=== PATIENT | female | born 1970 | race Caucasian/White ===

== ENCOUNTER 2020-01-24 17:38 | Inpatient (IN) | payer MEDICARE ==
[~2020-01-24] VITALS: Ht 165.1 cm; Wt 55.8 kg
--- NOTE | 2020-01-24 18:35 | NUR ---
Patient presents to ER for pysch admission. Per YANIRA Bello pt is "on a hold for gravely disabled." Patient placed in RM 1B. States she came from [facility] in [place]. Patient is alert and orient, ambulatory. Pt noted to have IV in Lt AC from the hospital she came from. IV removed, noted with tip intact. Patient states she has had nausea and diarrhea. Pt in no acute distress. Seen and examined by Dr. Kemp.
[2020-01-24] MEDS ORDERED: FLEXERIL PO (18:39)
[2020-01-24] MEDS ORDERED: SUMA50TA PO (18:39)
[2020-01-24] MEDS ORDERED: TOPI50TA PO (18:39)
[2020-01-24] MEDS ORDERED: ALBU0.63 NEB (18:39)
[2020-01-24] MEDS ORDERED: ATOR10TA PO (18:52)
[2020-01-24] MEDS ORDERED: LEVO25TA9 PO (18:52)
[2020-01-24] MEDS ORDERED: LOSA50TA39 PO (18:52)
[2020-01-24] MEDS ORDERED: TRAZ-182 PO (18:52)
[2020-01-24] MEDS ORDERED: BUPR100T5 PO (18:52)
--- NOTE | 2020-01-24 19:01 | NUR ---
Report given to Adenike CANNON.
--- NOTE | 2020-01-24 19:25 | NUR ---
EKG taken at this time
[2020-01-24 19:46] LABS: BASOPHILS # (AUTO) 0.1 K/uL (0.0-8.0); BASOPHILS % (AUTO) 1.4 % (0.0-2.0); CREATININE 0.9 mg/dL (0.6-1.3); EOSINOPHILS # (AUTO) 0.1 K/uL (0.0-0.7); EOSINOPHILS % (AUTO) 1.8 % (0.0-7.0); HEMATOCRIT 39.7 % (31.2-41.9); HEMOGLOBIN 13.2 g/dL (10.9-14.3); LYMPHOCYTES % (AUTO) 45.1 % (20.5-51.5); MEAN CORPUSCULAR HEMOGLOBIN 30.3 uug (24.7-32.8); MEAN CORPUSCULAR HGB CONC 33 g/dL (32.3-35.6); MEAN CORPUSCULAR VOLUME 90.8 fL (75.5-95.3); MONOCYTES # (AUTO) 0.3 K/uL (2.0-10.0); MONOCYTES % (AUTO) 7.5 % (0.0-11.0); NEUTROPHILS % (AUTO) 44.2 % (38.5-71.5); PLATELET COUNT (AUTO) 240 K/uL (179-408); POTASSIUM 4.4 mmol/L (3.5-5.1); RED BLOOD CELL COUNT(AUTO) 4.37 MIL/uL (3.63-4.92); WHITE BLOOD COUNT (AUTO) 4.5 K/uL (3.8-11.8)
[2020-01-24] MEDS ORDERED: TEMAZEPAM 7.5 MG CAPSULE PO PRN (20:45)
[2020-01-24] MEDS ORDERED: MAG HYDROX/AL HYDROX/SIMETH 30 ML LIQUID UDC PO PRN (20:45)
--- NOTE | 2020-01-24 21:30 | NUR ---
Pt. admitted to MHU , under care of Dr. Rodriguez and Kelle Belongs List completed and all belongings sent, no signs of acute distress noted
[2020-01-24 21:32] VITALS: BP 95/62
[2020-01-24] MEDS: LORAZEPAM 0.5 MG TABLET PO PRN (22:30)
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
--- NOTE | 2020-01-25 06:06 | NUR ---
Robert Pearson paged through [employer] regarding med recon, he stated he would reconcile.
--- NOTE | 2020-01-25 06:59 | NUR ---
SLEPT FOR 4:30 HOURS.URINE SAMPLE SENT TO LAB.
[2020-01-25 07:10] LABS: *BILIRUBIN,URIN NEGATIVE (NEGATIVE); *BLOOD, URINE NEGATIVE (NEGATIVE); *CLARITY,URINE CLOUDY (CLEAR); *COLOR,URINE YELLOW (YELLOW); *KETONES,URINE NEGATIVE (NEGATIVE); *UROBILINOGEN,URINE 0.2 E.U./dl (NORMAL); LEUKOCYTE ESTERASE ,URINE NEGATIVE (NEGATIVE); NITRITE, URINE NEGATIVE (NEGATIVE); UGLUCOSE NEGATIVE (NEGATIVE)
[2020-01-25 07:30] VITALS: BP 91/52
[2020-01-25 07:54] LABS: *AMPHETAMINE, URINE NEGATIVE (NEGATIVE); *CANNABINOID, URINE NEGATIVE (NEGATIVE); *COCCAINE, URINE NEGATIVE (NEGATIVE); *OPIATE, URINE NEGATIVE (NEGATIVE); *PHENCYCLIDINE SCREEN,URINE NEGATIVE (NEGATIVE)
[2020-01-25 08:26] LABS: *URINE HCG, QUAL NEG (NEGATIVE)
--- NOTE | 2020-01-25 12:01 | NUR ---
[facility] Initial Discharge Plan: Patent is homeless and states she is "transitioning". Patient refused to provide any emergency or supportive contacts. Patient might need SNF placement upon discharge. [facility] will continue to work with patient and MD to ensure a safe and proper discharge plan.
--- NOTE | 2020-01-25 12:45 | NUR ---
Firearms Report: Retail Support Associate completed and submitted a DOJ firearms report for 5150 grave disability certification. A copy of report has been placed in patient chart.
[2020-01-25] MEDS: risperiDONE-M 0.5 MG TAB.RAPDIS PO SCH ×2 (13:32→20:05)
--- NOTE | 2020-01-25 15:22 | NUR ---
GPS: Nursing Notes: Discharge Notes: Patient is awake and responding to her name, refusing her psych. medication - Risperdal-M, stated "I know about medications and I do not take opiates medications..", explained pros and cons of medication, print out information regarding Risperdal-M given to patient, but continue to refuse her medication, stated "I am going to take only Ativan for my anxiety..", hyperverbal, argumentative, believes that she works for the [employer], believes that she works for [employer] team, redirected and setting limits during shift, unable to formulate a viable plan for self care, continue with treatment plan.
[2020-01-25 16:33] VITALS: BP 90/54
[2020-01-25 17:52] LABS: BACTERIA,URINE NONE SEEN /HPF (NONE SEEN); RBC,URINE 0-3 /HPF (0-3); SQUAMOUS EPITHELIAL CELL,UR FEW /HPF (NONE SEEN); WBC,URINE 0-3 /HPF (0-3)
[2020-01-25 17:53] LABS: URINE AMORPHOUS URATE MODERATE /HPF
[2020-01-25] MEDS: LORAZEPAM 0.5 MG TABLET PO PRN (20:05)
[2020-01-25] MEDS: ACETAMINOPHEN 325 MG TABLET PO PRN (20:05)
[2020-01-25 20:16] VITALS: BP 100/70
--- NOTE | 2020-01-25 23:36 | NUR ---
Received patient in their room, appearing to be sleeping. Q15 min checks for safety and will continue to monitor.
--- NOTE | 2020-01-26 06:11 | NUR ---
Patient slept for 8.0 hours. Compliant with medications
[2020-01-26 07:30] VITALS: BP 93/67
[2020-01-26] MEDS: risperiDONE-M 0.5 MG TAB.RAPDIS PO SCH ×2 (08:26→20:29)
[2020-01-26] MEDS: LORAZEPAM 0.5 MG TABLET PO PRN ×2 (11:44→21:55)
--- NOTE | 2020-01-26 13:08 | NUR ---
[facility] Coordination of Care: SW faxed patient's referral packet to [facility] ([phone]) attention to Dmitriy or Selin for review and possible placement.
[2020-01-26] MEDS: GUAIFENESIN/CODEINE 5 ML LIQUID UDC PO PRN (14:28)
--- NOTE | 2020-01-26 17:55 | NUR ---
called and spoke with Dietary patient food preference,
--- NOTE | 2020-01-26 18:22 | NUR ---
Patient good grooming in appearance. Compliant with medication. Patient anxious noted. Ativan 0.5mg PRN with good effect. not in distress. no complaint of pain/discomfort noted. Patient participates with activities and had conversation with peers without agitation noted. will continue monitor
[2020-01-26 20:29] VITALS: BP 92/57
[2020-01-26] MEDS: MAGNESIUM HYDROXIDE 30 ML LIQUID UDC PO PRN (21:01)
[2020-01-27 07:30] VITALS: BP 85/53
[2020-01-27] MEDS: risperiDONE-M 0.5 MG TAB.RAPDIS PO SCH ×2 (08:12→20:18)
[2020-01-27] MEDS: TOPIRAMATE 100 MG TABLET PO SCH (08:12)
--- NOTE | 2020-01-27 08:30 | NUR ---
Received patient in Room, alert x 3. Patient is calm, No SI/HI noted. No signs of distress noted. No SOB. Medication given as ordered. compliant with Medication and treatment. Patient is re assured for safety. safety and fall precaution in place. Will continue to monitor.
[2020-01-27] MEDS: DOCUSATE SODIUM 100 MG CAPSULE PO SCH ×2 (10:36→16:50)
[2020-01-27] MEDS: ACETAMINOPHEN 325 MG TABLET PO PRN (14:20)
[2020-01-27 16:00] VITALS: BP 91/62
[2020-01-27] MEDS: GUAIFENESIN/CODEINE 5 ML LIQUID UDC PO PRN (18:25)
[2020-01-27 20:00] VITALS: BP 101/63
[2020-01-27] MEDS: LORAZEPAM 0.5 MG TABLET PO PRN (21:31)
[2020-01-28] MEDS: GUAIFENESIN/CODEINE 5 ML LIQUID UDC PO PRN (06:55)
[2020-01-28 07:30] VITALS: BP 97/58
[2020-01-28] MEDS: DOCUSATE SODIUM 100 MG CAPSULE PO SCH ×2 (09:47→16:43)
[2020-01-28] MEDS: risperiDONE-M 0.5 MG TAB.RAPDIS PO SCH ×2 (09:47→20:32)
[2020-01-28] MEDS: TOPIRAMATE 100 MG TABLET PO SCH (09:47)
[2020-01-28] MEDS: MAGNESIUM HYDROXIDE 30 ML LIQUID UDC PO PRN (10:00)
--- NOTE | 2020-01-28 11:59 | NUR ---
[facility] PC Hearing: Patient had probable cause hearing today and it was upheld for grave disability.
[2020-01-28] MEDS ORDERED: SUMATRIPTAN SUCCINATE 50 MG TABLET PO PRN (13:15)
[2020-01-28 16:00] VITALS: BP 96/64
[2020-01-28] MEDS: ATORVASTATIN 10 MG TABLET PO SCH (17:03)
--- NOTE | 2020-01-28 17:03 | NUR ---
Pt refused atorvastatin at this time. States she has always had low cholesterol and does not need it. Appears anxious with pressured speech. Frequently asking the same questions over and over, even when questions are answered. Able to verbalize all needs.
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
[2020-01-28 20:00] VITALS: BP 104/61
[2020-01-28] MEDS: LORAZEPAM 0.5 MG TABLET PO PRN (21:17)
[2020-01-29] MEDS: LEVOTHYROXINE SODIUM 25 MCG TABLET PO SCH (06:37)
[2020-01-29 07:30] VITALS: BP 100/64
[2020-01-29] MEDS: risperiDONE-M 0.5 MG TAB.RAPDIS PO SCH ×2 (08:39→20:16)
[2020-01-29] MEDS: DOCUSATE SODIUM 100 MG CAPSULE PO SCH ×2 (08:39→18:25)
[2020-01-29] MEDS: TOPIRAMATE 100 MG TABLET PO SCH (08:40)
[2020-01-29] MEDS ORDERED: LOSARTAN POTASSIUM 50 MG TABLET PO SCH (09:00)
[2020-01-29] MEDS ORDERED: BISACODYL 10 MG SUPP.RECT RC PRN (14:45)
[2020-01-29] MEDS ORDERED: BISACODYL 5 MG TABLET.DR PO ONE (15:20)
[2020-01-29 16:44] VITALS: BP 90/54
[2020-01-29] MEDS: ATORVASTATIN 10 MG TABLET PO SCH (18:00)
[2020-01-29 20:00] VITALS: BP 109/71
--- NOTE | 2020-01-29 20:25 | NUR ---
GPS: PATIENT C/O ABDOMINAL PAIN. MYLANTA 30 ML PO GIVEN.
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
[2020-01-30] MEDS: LEVOTHYROXINE SODIUM 25 MCG TABLET PO SCH (06:36)
[2020-01-30 07:54] VITALS: BP 91/65
[2020-01-30] MEDS: risperiDONE-M 0.5 MG TAB.RAPDIS PO SCH ×2 (08:22→20:17)
[2020-01-30] MEDS: TOPIRAMATE 100 MG TABLET PO SCH (08:22)
[2020-01-30] MEDS: DOCUSATE SODIUM 100 MG CAPSULE PO SCH ×3 (08:22→16:21)
[2020-01-30] MEDS: ACETAMINOPHEN 325 MG TABLET PO PRN (10:20)
[2020-01-30 16:55] VITALS: BP 91/61
--- NOTE | 2020-01-30 16:57 | NUR ---
patient requested flu and pneumococcal vaccine to be given, order faxed to Pharmacy .
[2020-01-30] MEDS: ATORVASTATIN 10 MG TABLET PO SCH (17:01)
[2020-01-30] MEDS ORDERED: INFLUENZA VACCINE 2020-2021 0.5 ML DISP.SYRIN IM ONE (18:00)
[2020-01-30] MEDS ORDERED: PNEUMOCOCCAL 23-VAL P-SAC VAC 0.5 ML VIAL IM ONE (18:00)
[2020-01-30 21:14] VITALS: BP 98/60
[2020-01-31] MEDS: LORAZEPAM 0.5 MG TABLET PO PRN ×3 (04:06→21:46)
[2020-01-31] MEDS: LEVOTHYROXINE SODIUM 25 MCG TABLET PO SCH (06:37)
[2020-01-31 07:30] VITALS: BP 90/59
--- NOTE | 2020-01-31 07:30 | NUR ---
received patient AOx4, patient no distress at this time, denies SI and HI, patient aware of discharge planning, and gave education on what to expect in a rehab facility, safety provided, needs attended, will continue monitor
[2020-01-31] MEDS: risperiDONE-M 0.5 MG TAB.RAPDIS PO SCH ×2 (08:00→20:11)
[2020-01-31] MEDS: DOCUSATE SODIUM 100 MG CAPSULE PO SCH ×2 (08:00→16:16)
[2020-01-31] MEDS: TOPIRAMATE 100 MG TABLET PO SCH (08:00)
[2020-01-31] MEDS: ACETAMINOPHEN 325 MG TABLET PO PRN (11:16)
[2020-01-31 15:15] VITALS: BP 90/65
[2020-01-31 20:50] VITALS: BP 94/59
[2020-02-01] MEDS: LORAZEPAM 0.5 MG TABLET PO PRN (04:16)
--- NOTE | 2020-02-01 04:20 | NUR ---
GPS: Pt.c/o anxiety. Re-assured prn. Ativan 0.5mg given PO. Will monitor effectiveness.
[2020-02-01 07:30] VITALS: BP 92/62
--- NOTE | 2020-02-01 08:09 | NUR ---
SW Discharge Note: Patient will be discharged to nursing [facility] [id number] [place] [phone] ([phone]) via Ambulance transportation at 12:00pm today. [employer] Manager Consultant spoke with Selin, Glass Handler at [facility] ([phone]) who confirmed that patient will be accepted at their facility today. Patient does not have any family or next of kin contacts at this time. Patient is alert and oriented x4. Patient is not able to plan for self-care at this time but is willing to accept care provided for her at the facility. Patient denies suicidal or homicidal ideation. Patient is aware and agreeable with discharge plans. Patient presents with appropriate mood and congruent affect. Patient will follow-up with Psychiatrist Dr. Nina and Fulfillment Mail Clerk Dr. Ibarra at [facility]. Patient signed the homeless waiver upon discharge and a copy was placed in the chart. Homeless resources were provided and include [address] information line for shelters and homeless resources. A copy of all resources given to patient was also placed in the chart.
[2020-02-01] MEDS: DOCUSATE SODIUM 100 MG CAPSULE PO SCH (08:50)
[2020-02-01] MEDS: TOPIRAMATE 100 MG TABLET PO SCH (08:50)
[2020-02-01] MEDS: risperiDONE-M 0.5 MG TAB.RAPDIS PO SCH (08:51)
--- NOTE | 2020-02-01 11:00 | NUR ---
Patient is calm, cooperative, and redirectable. she has appropriate interaction with staff and other patients. patient is adherent with medication, no adverse reaction noted. denies SI/HI, denies AH/VH. independently able to perform self care and ADL's.
--- NOTE | 2020-02-01 12:37 | NUR ---
Patient discharged off the unit in stable condition with no adverse event. patient being discharged to [facility], agreeable to discharge. Patient denies SI/HI, denies AH/VH. Patient's belongings and valuables inventoried with patient and returned. Patient provided with education about discharge diagnosis, medications, follow-up care, and physician instructions. able to verbalize understanding. patient being transported by non-emergency ambulance.
== END 2020-02-01 12:25 | DRG 885 ==
LOC: ER 17:53 → GPS 20:26 → EDBD 20:26
PROVIDERS: ADMIT Psychiatry & Neurology Psychosomatic Medicine
DX: F25.0 Schizoaffective disorder, bipolar type (principal); G40.909 Epilepsy, unspecified, not intractable, without status epilepticus; F41.0 Panic disorder [episodic paroxysmal anxiety]; J45.909 Unspecified asthma, uncomplicated; K59.00 Constipation, unspecified; F41.9 Anxiety disorder, unspecified; F19.90 Other psychoactive substance use, unspecified, uncomplicated; Z72.89 Other problems related to lifestyle
CPT/HCPCS: 36415; 70030-TC; 84443; 84703; 85025; 87086; 90686; 90732; 93005; A4663